=== PATIENT | female | born 1995 | race African-American/Black ===

== ENCOUNTER 2021-07-08 16:52 | Emergency (ER) | payer MEDICAID ==
[~2021-07-08] VITALS: Ht 165.1 cm; Wt 59.0 kg
[2021-07-08 17:03] VITALS: BP 120/76
== END 2021-07-08 18:16 | disposition left against medical advice (07) ==
LOC: ER 16:52
DX: Z53.21 Procedure and treatment not carried out due to patient leaving prior to being seen by health care provider (principal)

== ENCOUNTER 2021-07-08 18:35 | Emergency (ER) | payer MEDICAID ==
[~2021-07-08] VITALS: Ht 165.1 cm; Wt 68.0 kg
[2021-07-08] MEDS ORDERED: DIPHENHYDRAMINE 25MG CAPSULE PO ONE (23:00)
[2021-07-08] MEDS ORDERED: DEXAMETHASONE 2MG TABLET PO ONE (23:00)
[2021-07-08 23:10] VITALS: BP 120/76
== END 2021-07-08 23:16 | disposition home or self-care (01) ==
LOC: ER 18:35
DX: R21 Rash and other nonspecific skin eruption (principal)
CPT/HCPCS: 99283; J8540; Q0163